=== PATIENT | male | born 1960 | race American Indian/Alaskan Native ===

== ENCOUNTER 2019-05-19 06:18 | Day surgery (SDC) | payer MEDICAID ==
[~2019-05-19 06:18] MED LIST: Dextrose 5%-0.45% NaCl 1,000 ML IV SCH; Midazolam 1 MG/ML 2 ML SDV ONE; Sodium Chloride 0.9% 10 ML Syringe FLUSH PRN; fentaNYL 100 MCG/2 ML SDV ONE
[2019-05-19] MEDS ORDERED: Midazolam 1 MG/ML 2 ML SDV IV ONE ×7 (06:19→07:59)
[2019-05-19] MEDS ORDERED: fentaNYL 100 MCG/2 ML SDV IV ONE ×3 (06:19→07:51)
[2019-05-19 10:03] VITALS: BP 151/98; PULSE 50
--- NOTE | 2019-05-19 12:25 | OR ---
DATE: 05/19/2019 PROCEDURE: Total colonoscopy, NBI, and multiple pinch biopsies. INSTRUMENT USED: [id number] Olympus video colonoscope. PREMEDICATIONS: Fentanyl 100 mcg intravenous, Versed 4 mg intravenous, nasal O2 cannula. The procedure was done under pulse oximetry, BP recording, and sausage meat trimmer. INDICATION: The patient with positive Hemoccult stools. Colonoscopic examination is done for detection of any polypoid lesions and removal, endoscopic hemostasis therapy if needed. DESCRIPTION OF PROCEDURE: Initial rectal exam was unremarkable. Rigid anoscopy was normal. The colonoscope was passed with ease. Few scattered diverticula were noted in the distal left colon along with deformity. The scope was passed with ease up to the ileocecal area. Photographs were taken of the cecum that showed polyp quite prominent, benign appearing at ileocecal folds. NBI views were obtained. Photographs were taken. Multiple pinch biopsies were obtained and sent for histopathology. No bleeding was noted from any of the visualized areas at the commencement of the examination. Bowel preparation was found to be adequate, Houck scale 2 in all the regions. No stricture. No vascular ectasia. No large isolated ulcerations seen. No evidence of diffuse inflammatory bowel disease in the form of friability, contact bleeding, or ulcerations. Probing the proximal sides of folds and flexures using adequate distention and clearing up the stool material, withdrawal of the scope was made, cecum to rectum time over 6 minutes. No bleeding was noted from any of the visualized areas at the completion of examination. IMPRESSION: Diverticulosis. The patient tolerated the procedure well. [facility] /[id number]
--- NOTE | 2019-05-19 13:22 | LETTER ---
05/19/2019 Keyona Rodriguez MD [facility] [address] [place] [address] RE: NAKUL BARTHOLOMEW : [address] Rodriguez: Mr. Nakul Bartholomew had colonoscopic examination done this morning and he tolerated the procedure well. I herewith send a copy of the endoscopy note and photographs for your review. Thank you. Sincerely, [facility] /[id number]
== END 2019-05-19 10:08 | disposition home or self-care (01) ==
LOC: DL.ENDO 06:18
PROVIDERS: ATTEND Internal Medicine Gastroenterology
DX: D12.0 Benign neoplasm of cecum (principal); K57.30 Diverticulosis of large intestine without perforation or abscess without bleeding
CPT/HCPCS: 45380; J2250; J3010; J7042

== ENCOUNTER 2019-06-15 20:16 | Emergency (ER) | payer MEDICAID ==
[2019-06-15] MEDS ORDERED: Ciprofloxacin 500 MG Tab PO ONE ×2 (20:17→22:01)
[2019-06-15] MEDS ORDERED: Tamsulosin 0.4 MG Cap.ER PO ONE ×2 (20:17→21:58)
[2019-06-15] MEDS ORDERED: Ondansetron 4 MG Tab.DIS PO ONE (20:17)
[2019-06-15] MEDS ORDERED: Acetaminophen/HYDROcodone 325-10 MG Tab PO ONE (20:17)
[2019-06-15] MEDS ORDERED: Sodium Chloride 0.9% 1,000 ML IV ONE (20:41)
[2019-06-15] MEDS ORDERED: Ondansetron 4 MG/2 ML SDV IV ONE (20:41)
[2019-06-15] MEDS ORDERED: fentaNYL 100 MCG/2 ML SDV IVPUSH ONE ×2 (20:42→22:07)
[2019-06-15 20:58] LABS: ANION GAP 14.7
[2019-06-15] MEDS ORDERED: Acetaminophen/HYDROcodone 325-10 MG Tab ONE (22:15)
[2019-06-15] MEDS ORDERED: Ciprofloxacin 500 MG Tab ONE (22:15)
[2019-06-15] MEDS ORDERED: Tamsulosin 0.4 MG Cap.ER ONE (22:16)
[2019-06-15] MEDS ORDERED: Ondansetron 4 MG Tab.DIS ONE (22:16)
--- NOTE | 2019-06-15 22:17 | EDM.PDOC ---
"ED HPI GENERAL MEDICAL PROBLEM - General Chief Complaint: Abdominal Pain Stated Complaint: ABD PAINS Time Seen by Provider: 06/15/19 20:30 Source of Information: Reports: Patient History Limitations: Reports: No Limitations - History of Present Illness INITIAL COMMENTS - FREE TEXT/NARRATIVE: right flank pain since last night, feels like kidney stone , nauseated this sandra. trying to push fluids today. No known fever. Right Flank Pain Score (Numeric/FACES): 6 - Related Data Allergies Allergy/AdvReac Type Severity Reaction Status Date / Time No Known Allergies Allergy Verified 06/15/19 20:30 Home Meds: Home Meds Acetaminophen [Tylenol Extra Strength] 1,000 mg PO BID 06/15/18 [History] Ibuprofen 200 mg PO Q6H PRN 06/15/18 [History] Pantoprazole [ProTONIX] 40 mg PO DAILY 06/15/18 [History] Past Medical History HEENT History: Reports: Impaired Vision Other HEENT History: WEARS GLASSES Cardiovascular History: Reports: Hypertension Respiratory History: Reports: None Gastrointestinal History: Reports: GERD Other Gastrointestinal History: HX OF OCCULT BLOOD IN STOOL Genitourinary History: Reports: None, Renal Calculus Musculoskeletal History: Reports: Gout Neurological History: Reports: None Psychiatric History: Reports: None Endocrine/Metabolic History: Reports: None Hematologic History: Reports: None Immunologic History: Reports: None Oncologic (Cancer) History: Reports: None Dermatologic History: Reports: None - Infectious Disease History Infectious Disease History: Reports: Chicken Pox - Past Surgical History Head Surgeries/Procedures: Reports: None HEENT Surgical History: Reports: None Cardiovascular Surgical History: Reports: None Respiratory Surgical History: Reports: None GI Surgical History: Reports: EGD, Hernia, Inguinal Other GI Surgeries/Procedures: DENIES COLONOSCOPY 06/2018. INGUINAL HERNIA A BABY Male Surgical History: Reports: None Endocrine Surgical History: Reports: None Neurological Surgical History: Reports: None Musculoskeletal Surgical History: Reports: Other (See Below) Other Musculoskeletal Surgeries/Procedures:: L) hand lump removal Oncologic Surgical History: Reports: None Dermatological Surgical History: Reports: None Social & Family History - Family History Family Medical History: Noncontributory - Tobacco Use Smoking Status *Q: Never Smoker Second Hand Smoke Exposure: No - Caffeine Use Caffeine Use: Reports: Soda Caffeine Use Comment: soda, 2-3 cans navi;y. 8 oz coffee daily - Recreational Drug Use Recreational Drug Use: No ED ROS GENERAL - Review of Systems Review Of Systems: Comprehensive ROS is negative, except as noted in HPI. ED EXAM, RENAL/ - Physical Exam Exam: See Below Exam Limited By: No Limitations General Appearance: Alert, Moderate Distress Eye Exam: Bilateral Eye: EOMI, PERRL Ears: Normal External Exam Nose: Normal Inspection Throat/Mouth: Normal Inspection Head: Atraumatic, Normocephalic Neck: Normal Inspection Respiratory/Chest: No Respiratory Distress, Lungs Clear, Normal Breath Sounds Cardiovascular: Regular Rate, Rhythm GI/Abdominal: Soft, Non-Tender Back Exam: CVA Tenderness (R) Extremities: Normal Inspection Neurological: Alert, Oriented, Normal Cognition Psychiatric: Normal Affect Skin Exam: Warm, Dry, Intact, Normal Color Course - Vital Signs Last Recorded V/S: Last Vital Signs Temp 99.1 F 06/15/19 20:26 Pulse 63 06/15/19 20:26 Resp 18 06/15/19 20:26 BP 189/110 H 06/15/19 20:26 Pulse Ox 97 06/15/19 20:26 - Orders/Labs/Meds Orders: Active Orders 24 hr Category Date Time Status Abdomen Pelvis wo Cont [CT] Urgent Exams 06/15/19 21:17 Taken Labs: Laboratory Tests 06/15/19 06/15/19 06/15/19 Range/Units 20:32 20:32 20:32 WBC 12.0 H (5.0-10.0) 10^3/uL RBC 5.07 (4.6-6.2) 10^6/uL Hgb 14.7 (14.0-18.0) g/dL Hct 42.6 (40.0-54.0) % MCV 84.0 (80-100) fL MCH 29.0 (27.0-34.0) pg MCHC 34.5 (33.0-35.0) g/dL Plt Count 247 (150-450) 10^3/uL Neut % (Auto) 77.8 H (42.2-75.2) % Lymph % (Auto) 13.6 L (20.5-50.1) % Mcintosh % (Auto) 8.0 (2-8) % Eos % (Auto) 0.4 L (1.0-3.0) % Baso % (Auto) 0.2 (0.0-1.0) % Sodium 136 (135-145) mmol/L Potassium 3.7 (3.6-5.0) mmol/L Chloride 100 L (101-111) mmol/L Carbon Dioxide 25.0 (21.0-31.0) mmol/L Anion Gap 14.7 BUN 14 (7-18) mg/dL Creatinine 1.8 H (0.6-1.3) mg/dL Est Cr Clr Drug Dosing 45.28 mL/min Estimated GFR (MDRD) 39 BUN/Creatinine Ratio 7.77 Glucose 98 (74-105) mg/dL Lactic Acid 0.9 (0.5-2.2) mmol/L Calcium 9.2 (8.4-10.2) mg/dl Total Bilirubin 1.0 (0.2-1.0) mg/dL AST 22 (10-42) IU/L ALT 17 (10-60) IU/L Alkaline Phosphatase 76 (42-121) IU/L Total Protein 7.5 (6.7-8.2) g/dl Albumin 4.1 (3.2-5.5) g/dl Globulin 3.4 Albumin/Globulin Ratio 1.21 Amylase 49 (28-100) U/L Lipase 27 (22-51) U/L Urine Color (YELLOW) Urine Appearance (CLEAR) Urine pH (5.0-9.0) Ur Specific Semora (1.005-1.030) Urine Protein (NEGATIVE) Urine Glucose (UA) (NEGATIVE) Urine Ketones (NEGATIVE) Urine Occult Blood (NEGATIVE) Urine Nitrite (NEGATIVE) Urine Bilirubin (NEGATIVE) Urine Urobilinogen (0.2-1.0) mg/dL Ur Leukocyte Esterase (NEGATIVE) Urine RBC /HPF Urine WBC (0-5/HPF) /HPF Ur Epithelial Cells (NOT SEEN) /HPF Amorphous Sediment (NOT SEEN) /HPF Urine Bacteria (0-FEW/HPF) /HPF Urine Mucus (NOT SEEN) /LPF 06/15/19 Range/Units 21:21 WBC (5.0-10.0) 10^3/uL RBC (4.6-6.2) 10^6/uL Hgb (14.0-18.0) g/dL Hct (40.0-54.0) % MCV (80-100) fL MCH (27.0-34.0) pg MCHC (33.0-35.0) g/dL Plt Count (150-450) 10^3/uL Neut % (Auto) (42.2-75.2) % Lymph % (Auto) (20.5-50.1) % Mcintosh % (Auto) (2-8) % Eos % (Auto) (1.0-3.0) % Baso % (Auto) (0.0-1.0) % Sodium (135-145) mmol/L Potassium (3.6-5.0) mmol/L Chloride (101-111) mmol/L Carbon Dioxide (21.0-31.0) mmol/L Anion Gap BUN (7-18) mg/dL Creatinine (0.6-1.3) mg/dL Est Cr Clr Drug Dosing mL/min Estimated GFR (MDRD) BUN/Creatinine Ratio Glucose (74-105) mg/dL Lactic Acid (0.5-2.2) mmol/L Calcium (8.4-10.2) mg/dl Total Bilirubin (0.2-1.0) mg/dL AST (10-42) IU/L ALT (10-60) IU/L Alkaline Phosphatase (42-121) IU/L Total Protein (6.7-8.2) g/dl Albumin (3.2-5.5) g/dl Globulin Albumin/Globulin Ratio Amylase (28-100) U/L Lipase (22-51) U/L Urine Color Yellow (YELLOW) Urine Appearance Slightly cloudy (CLEAR) Urine pH 6.0 (5.0-9.0) Ur Specific Semora 1.015 (1.005-1.030) Urine Protein Negative (NEGATIVE) Urine Glucose (UA) Negative (NEGATIVE) Urine Ketones 15 H (NEGATIVE) Urine Occult Blood Trace-intact H (NEGATIVE) Urine Nitrite Negative (NEGATIVE) Urine Bilirubin Negative (NEGATIVE) Urine Urobilinogen 0.2 (0.2-1.0) mg/dL Ur Leukocyte Esterase Negative (NEGATIVE) Urine RBC 5-10 H /HPF Urine WBC Not seen (0-5/HPF) /HPF Ur Epithelial Cells Rare (NOT SEEN) /HPF Amorphous Sediment Rare (NOT SEEN) /HPF Urine Bacteria Few (0-FEW/HPF) /HPF Urine Mucus Few H (NOT SEEN) /LPF Meds: Medications Discontinued Medications Generic Name Dose Route Start Last Admin Trade Name Judson PRN Reason Stop Dose Admin Hydrocodone Bitart/Acetaminophen Confirm 06/15/19 22:15 06/15/19 22:41 Greer 325-10 Mg Administered 06/15/19 22:16 Not Given Dose 6 tab .ROUTE .STK-MED ONE Ciprofloxacin 500 mg 06/15/19 22:01 06/15/19 22:06 Ciprofloxacin Hcl PO 06/15/19 22:02 500 mg ONETIME ONE Administration Ciprofloxacin Confirm 06/15/19 22:15 06/15/19 22:40 Ciprofloxacin Hcl Administered 06/15/19 22:16 Not Given Dose 1,000 mg .ROUTE .STK-MED ONE Fentanyl 50 mcg 06/15/19 20:42 06/15/19 20:47 Sublimaze IVPUSH 06/15/19 20:43 50 mcg ONETIME ONE Administration Fentanyl 50 mcg 06/15/19 22:07 06/15/19 22:15 Sublimaze IVPUSH 06/15/19 22:08 50 mcg ONETIME ONE Administration Hydralazine HCl 10 mg 06/15/19 22:53 06/15/19 22:59 Apresoline IVPUSH 06/15/19 22:54 10 mg ONETIME ONE Administration Hydromorphone HCl 0.5 mg 06/15/19 23:06 06/15/19 23:11 Dilaudid IVPUSH 06/15/19 23:07 0.5 mg ONETIME ONE Administration Sodium Chloride 1,000 mls @ 999 mls/hr 06/15/19 20:41 06/15/19 22:15 Normal Saline IV 06/15/19 21:41 Infused .BOLUS ONE Infusion Metoprolol Tartrate 25 mg 06/15/19 22:38 06/15/19 23:20 Lopressor PO 06/15/19 22:39 Not Given ONETIME ONE Ondansetron HCl 4 mg 06/15/19 20:41 06/15/19 20:47 Zofran IV 06/15/19 20:42 4 mg ONETIME ONE Administration Ondansetron HCl Confirm 06/15/19 22:16 06/15/19 22:41 Zofran Odt Administered 06/15/19 22:17 Not Given Dose 20 mg .ROUTE .STK-MED ONE Tamsulosin HCl 0.4 mg 06/15/19 21:58 06/15/19 22:06 Flomax PO 06/15/19 21:59 0.4 mg ONETIME ONE Administration Tamsulosin HCl Confirm 06/15/19 22:16 06/15/19 22:40 Flomax Administered 06/15/19 22:17 Not Given Dose 0.4 mg .ROUTE .STK-MED ONE - Radiology Interpretation Free Text/Narrative:: [facility] Final Radiology Report Call: [phone] assistance Online chat: [email or web address] Name: NAKUL SCANLON Age: 59Years M Date: 06/15/2019 SSN: -- : 1960 Study: CT ABDOMEN/PELVIS WO Requesting Physician: KASEY VAIL Images: [id number] Addl Studies: Provided Clinical History: Contrast: Without Contrast Medium: Contrast Amount: Contrast Method: Page 1 of 2 PROCEDURE INFORMATION: Exam: CT Abdomen And Pelvis Without Contrast Exam date and time: 06/15/2019 9:25 PM Age: 59 years old Clinical indication: Abdominal pain; Flank; Right TECHNIQUE: Imaging protocol: Computed tomography of the abdomen and pelvis without contrast. Radiation optimization: All CT scans at this facility use at least one of these dose optimization techniques: automated exposure control; mA and/or kV adjustment per patient size (includes targeted exams where dose is matched to clinical indication); or iterative reconstruction. COMPARISON: No relevant prior studies available. FINDINGS: Mediastinum: There is a moderate size hiatal hernia which contains fluid. Liver: Normal. No mass. Small cyst or focal fatty infiltration along the falciform ligament measuring 10 mm. Gallbladder and bile ducts: Normal. No calcified stones. No ductal dilation. Pancreas: Normal. No ductal dilation. Spleen: Normal. No splenomegaly. Adrenals: Normal. No mass. Kidneys and ureters: Moderate right hydroureter. There is a calculus within the intramural portion of the right ureter at the bladder. This calculus is 2 mm. This appears to be in the process of passing. Multiple additional right upper collecting system 1-2 mm nonobstructive calculi. No left hydronephrosis or urinary calculi. There is fatty stranding surrounding the right kidney. No urinoma. Stomach and bowel: Colonic diverticulosis without evidence of acute diverticulitis. Normal small bowel. NAKUL SCANLON | Final Radiology Report CONFIDENTIALITY STATEMENT This report is intended only for use by the referring physician, and only in accordance with law. If you received this in error, call [phone]. Page 2 of 2 Appendix: No evidence of appendicitis. Intraperitoneal space: Unremarkable. No free air. No significant fluid collection. Vasculature: Unremarkable. No abdominal aortic aneurysm. Lymph nodes: Unremarkable. No enlarged lymph nodes. Bladder: Unremarkable as visualized. Reproductive: Unremarkable as visualized. Bones/joints: Degenerative lumbar spine disease. Severe disc degenerative narrowing at L5/S1.. No acute fracture. Soft tissues: Unremarkable. IMPRESSION: 1. Right hydroureteronephrosis of moderate severity with 2 mm calculus in the intramural portion of the distal right ureter. This is in the process of passing. Additional punctate nonobstructive right upper collecting system calculi. Right para renal fatty stranding. 2. Moderate hiatal hernia with fluid contents. Thank you for allowing us to participate in the care of your patient. Dictated and Authenticated by: Sj Pretty MD 06/15/2019 9:49 PM Central Time ([place] & [place]) - Re-Assessments/Exams Free Text/Narrative Re-Assessment/Exam: 06/16/19 04:14 Pain controlled. BP improved. Departure - Departure Time of Disposition: 22:13 Disposition: Home, Self-Care 01 Condition: Good Clinical Impression: Renal calculus, right - Discharge Information *PRESCRIPTION DRUG MONITORING PROGRAM REVIEWED*: No *COPY OF PRESCRIPTION DRUG MONITORING REPORT IN PATIENT KIKO: No Instructions: Kidney Stones, [id number], Hypertension Referrals: PCP,None [Primary Care Provider] - Forms: ED Department Discharge Additional Instructions: clinic follow up this week recheck BP hydrocodone 10/325 one every 6 hours as needed for severe pain zofran 4mg ODT one every 6 hours as needed for nausea flomax 0.4mg one daily cipro 500mg one twice daily increase fluid intake clonodine 0.1mg one daily Sepsis Event Note - Evaluation Sepsis Screening Result: No Definite Risk - Focused Exam Vital Signs: Vital Signs Temp Pulse Resp BP Pulse Ox 06/15/19 20:26 99.1 F 63 18 189/110 H 97 Date Exam was Performed: 06/16/19 Time Exam was Performed: 04:12 - My Orders Last 24 Hours: My Active Orders 06/15/19 21:17 Abdomen Pelvis wo Cont [CT] Urgent - Assessment/Plan Last 24 Hours: My Active Orders 06/15/19 21:17 Abdomen Pelvis wo Cont [CT] Urgent"
[2019-06-15] MEDS ORDERED: Metoprolol Tartrate 25 MG Tab PO ONE (22:38)
[2019-06-15] MEDS ORDERED: hydrALAZINE 20 MG/ML SDV IVPUSH ONE (22:53)
[2019-06-15] MEDS ORDERED: HYDROmorphone 1 MG/ML Syringe IVPUSH ONE (23:06)
== END 2019-06-15 23:23 | disposition home or self-care (01) ==
LOC: DL.ED 20:16
DX: N13.2 Hydronephrosis with renal and ureteral calculous obstruction (principal); I10 Essential (primary) hypertension; K21.9 Gastro-esophageal reflux disease without esophagitis; M10.9 Gout, unspecified; Z79.899 Other long term (current) drug therapy
CPT/HCPCS: 36415; 74176; 80053; 81001; 82150; 83605; 83690; 85025; 96374; 96375; 96376; 99284; A9270; J0360; J1170; J2405; J3010; J7030

== ENCOUNTER 2020-06-10 16:20 | Emergency (ER) | payer MEDICAID ==
[2020-06-10] MEDS ORDERED: Lidocaine 1% 30 ML SDV INJECT ONE (16:59)
--- NOTE | 2020-06-10 17:07 | EDM.PDOC ---
ED HPI GENERAL MEDICAL PROBLEM - General Chief Complaint: Laceration Stated Complaint: ABOVE LEFT EYE HEAD WOUND Time Seen by Provider: 06/10/20 16:59 Source of Information: Reports: Patient, RN, RN Notes Reviewed History Limitations: Reports: No Limitations - History of Present Illness INITIAL COMMENTS - FREE TEXT/NARRATIVE: Patient presents to the ED via personal vehicle with complaints of a laceration above his right eyebrow. The patient states he was taking down a high school volleyball net about 30 minutes prior to his arrival at this facility, and was struck in the face by a falling pole. He denies loss of consciousness during the event. He denies vision changes, headache, or vomiting. He has not taken any medications for this problem. Left Face/Facial Pain Score (Numeric/FACES): 4 - Related Data Allergies Allergy/AdvReac Type Severity Reaction Status Date / Time No Known Allergies Allergy Verified 06/10/20 16:30 Home Meds: Home Meds Losartan [Cozaar] 100 mg PO DAILY 06/10/20 [History] Past Medical History HEENT History: Reports: Impaired Vision Other HEENT History: WEARS GLASSES Cardiovascular History: Reports: Hypertension Respiratory History: Reports: None Gastrointestinal History: Reports: GERD Other Gastrointestinal History: HX OF OCCULT BLOOD IN STOOL Genitourinary History: Reports: Renal Calculus Musculoskeletal History: Reports: Gout Neurological History: Reports: None Psychiatric History: Reports: None Endocrine/Metabolic History: Reports: None Hematologic History: Reports: None Immunologic History: Reports: None Oncologic (Cancer) History: Reports: None Dermatologic History: Reports: None - Infectious Disease History Infectious Disease History: Reports: Chicken Pox - Past Surgical History Head Surgeries/Procedures: Reports: None HEENT Surgical History: Reports: None Cardiovascular Surgical History: Reports: None Respiratory Surgical History: Reports: None GI Surgical History: Reports: EGD, Hernia, Inguinal Other GI Surgeries/Procedures: DENIES COLONOSCOPY 06/2018. INGUINAL HERNIA A BABY Male Surgical History: Reports: None Endocrine Surgical History: Reports: None Neurological Surgical History: Reports: None Musculoskeletal Surgical History: Reports: Other (See Below) Other Musculoskeletal Surgeries/Procedures:: L) hand lump removal Oncologic Surgical History: Reports: None Dermatological Surgical History: Reports: None Social & Family History - Family History Family Medical History: No Pertinent Family History - Tobacco Use Tobacco Use Status *Q: Never Tobacco User - Caffeine Use Caffeine Use: Reports: Coffee Caffeine Use Comment: soda, 2-3 cans navi;y. 8 oz coffee daily - Recreational Drug Use Recreational Drug Use: No ED ROS GENERAL - Review of Systems Review Of Systems: Comprehensive ROS is negative, except as noted in HPI. ED EXAM, SKIN/RASH Exam: See Below Exam Limited By: No Limitations General Appearance: Alert, WD/WN, No Apparent Distress Eye Exam: Bilateral Eye: EOMI, Normal Inspection, PERRL (3mm) Head: Facial Swelling, Facial Tenderness, Other (2cm laceration above right eyebrow) Neurological: Alert, Oriented, CN II-XII Intact, Normal Cognition, Normal Gait, No Motor/Sensory Deficits Psychiatric: Normal Affect, Normal Mood Skin: Warm, Dry, Normal Color, No Rash, Wound/Incision (2cm lacteration above right eyebrow). No: Ecchymosis, Erythema, Mottled, Pallor, Petechiae ED SKIN PROCEDURES - Laceration/Wound Repair Right Upper Anterior Brow Appearance: Superficial Distal NVT: Neuro & Vascular Intact, No Tendon Injury Anesthetic Type: Local Local Anesthesia - Lidocaine (Xylocaine): 1% Plain Skin Prep: Chlorhexidine (Hibiciens), Sterile Drape Exploration/Debridement/Repair: Wound Explored, In a Bloodless Field, Explored to Base, No Foreign Material Found, Wound Margins Revised Closed with: Sutures Lac/Wound length In cm: 2 Suture Size: 4-0 # of Sutures: 4 Suture Type: Prolene, Interrupted, Simple Drain Placement: No Sterile Dressing Applied: Nurse Tetanus Status Addressed: Yes Complications: No Course - Vital Signs Last Recorded V/S: Last Vital Signs Temp 98.1 F 06/10/20 16:31 Pulse 80 06/10/20 16:31 Resp 16 06/10/20 16:31 BP 90/56 L 06/10/20 16:31 Pulse Ox 100 06/10/20 16:31 - Orders/Labs/Meds Meds: Medications Discontinued Medications Generic Name Dose Route Start Last Admin Trade Name Freeliza PRN Reason Stop Dose Admin Lidocaine HCl 30 ml 06/10/20 16:59 Xylocaine-Mpf 1% INJECT 06/10/20 17:00 ONETIME ONE Departure - Departure Time of Disposition: 17:28 Disposition: Home, Self-Care 01 Condition: Good Clinical Impression: Laceration of right eyebrow without complication Qualifiers: Encounter type: initial encounter Qualified Code(s): S01.111A - Laceration without foreign body of right eyelid and periocular area, initial encounter - Discharge Information *PRESCRIPTION DRUG MONITORING PROGRAM REVIEWED*: Not Applicable *COPY OF PRESCRIPTION DRUG MONITORING REPORT IN PATIENT KIKO: Not Applicable Instructions: Laceration Care, Adult Additional Instructions: 1.) Follow up with your primary care facility for suture removal in seven days. 2.) Keep wound clean and dry; you may remove the dressing in 24 hours and reapply a bandaid as needed. 3.) You may take acetaminophen (Tylenol) 650mg every six hours. You may take i buprofen (Advil/Motrin) 400mg every six hours. You may stagger these medications so you are taking a dose of medicine every three hours. Sepsis Event Note (ED) - Evaluation Sepsis Screening Result: No Definite Risk - Focused Exam Vital Signs: Vital Signs Temp Pulse Resp BP Pulse Ox 06/10/20 16:31 98.1 F 80 16 90/56 L 100
== END 2020-06-10 17:39 | disposition home or self-care (01) ==
LOC: DL.ED 16:20
DX: S01.81XA Laceration without foreign body of other part of head, initial encounter (principal); I10 Essential (primary) hypertension; Z79.899 Other long term (current) drug therapy; W22.8XXA Striking against or struck by other objects, initial encounter
CPT/HCPCS: 12011; 99282; J2001

== ENCOUNTER 2022-10-11 06:17 | Day surgery (SDC) | payer MEDICAID ==
[~2022-10-11 06:17] MED LIST changes: +Sodium Chloride 0.9% 10 ML Syringe FLUSH SCH
[2022-10-11] MEDS ORDERED: Midazolam 1 MG/ML 2 ML SDV IV ONE ×9 (06:18→08:04)
[2022-10-11] MEDS ORDERED: fentaNYL 100 MCG/2 ML SDV IV ONE ×3 (06:18→07:42)
== END 2022-10-11 10:00 | disposition home or self-care (01) ==
LOC: DL.ENDO 06:17
PROVIDERS: ATTEND Internal Medicine Gastroenterology
DX: Z12.11 Encounter for screening for malignant neoplasm of colon (principal); K57.30 Diverticulosis of large intestine without perforation or abscess without bleeding; I10 Essential (primary) hypertension; M10.9 Gout, unspecified; E11.9 Type 2 diabetes mellitus without complications; Z98.890 Other specified postprocedural states; Z86.010 Personal history of colon polyps; Z89.112 Acquired absence of left hand
CPT/HCPCS: 45378; J2250; J3010; J7042